=== PATIENT | female | born 1960 | race Caucasian/White ===

== ENCOUNTER 2021-09-25 16:42 | Emergency (ER) | payer BC ==
[~2021-09-25] VITALS: Ht 167.6 cm; Wt 99.8 kg
[~2021-09-25 16:42] MED LIST: CELE200C PO; ESCI10TA PO; OMEP20CA15 PO
[2021-09-25 16:54] VITALS: BP_SYST 142
[2021-09-25] MEDS ORDERED: MORPHINE 4 MG INJ. 4 MG/ML VIAL IM ONE (17:00)
[2021-09-25] MEDS ORDERED: HYDR-3917 PO (18:13)
[2021-09-25] MEDS ORDERED: IBUP-1969 PO (18:13)
[2021-09-25 18:53] VITALS: BP_SYST 154
== END 2021-09-25 18:53 | disposition home or self-care (01) ==
LOC: SED 16:42
DX: S42.001A Fracture of unspecified part of right clavicle, initial encounter for closed fracture (principal); M25.511 Pain in right shoulder; J45.909 Unspecified asthma, uncomplicated; Z88.5 Allergy status to narcotic agent; W01.0XXA Fall on same level from slipping, tripping and stumbling without subsequent striking against object, initial encounter; Y93.89 Activity, other specified; Y92.89 Other specified places as the place of occurrence of the external cause; Y99.8 Other external cause status
CPT/HCPCS: 99283; 73030; 96372; J2270